=== PATIENT | female | born 1960 | race Caucasian/White ===

== ENCOUNTER 2018-02-13 10:53 | Emergency (ER) | payer BC, MEDICAID ==
[~2018-02-13] VITALS: Ht 160 cm; Wt 71.7 kg
[2018-02-13 10:55] VITALS: BP 161/82
--- NOTE | 2018-02-13 10:55 | NUR ---
TO BED # 11 AMBULATORY, REPORT GIVEN TO SIMA COLEMAN
--- NOTE | 2018-02-13 11:19 | NUR ---
PT C/O NUMBNESS AND TINGLING FO ARMS HAND AND LEGS X 3 WEEK. PT STATES IT ALL STARTED WHILE ON A TRIP TO [facility]. PT ALSO EXPERIENCING DIARRHEA. PT REPORTS GOING TO URGENT CARE LAST NIGHT AND BEING DIAGNOSED WITH A STOMACH INFECTION. PT CURRENTLY TAKING CIPRO AND FLAGYL. PT DENIES PAIN. REPORTS FEELING WEAK. NEURO CHECK WNL. PT WAS ABLE TO PROVIDE A URINE SAMPLE. PT DENIES ANY FEVER, CP, SOB AT THIS TIME; PATIENT STATES PAIN OF 0/10 AT THIS TIME; VSS; PATIENT POSITIONED FOR COMFORT; HOB ELEVATED; BEDRAILS UP X1; BED DOWN. ER MD MADE AWARE OF PT STATUS.
[2018-02-13] MEDS ORDERED: NACL 0.9% 1,000 ML IV ONE (11:46)
[2018-02-13] MEDS ORDERED: NACL 0.9% 1,000 ML IV SCH (11:46)
[2018-02-13 12:41] LABS: BASOPHILS # (AUTO) 0.1 K/uL (0.00-0.22); BASOPHILS % (AUTO) 0.8 % (0.0-2.0); EOSINOPHILS # (AUTO) 0.1 K/uL (0-0.4); EOSINOPHILS % (AUTO) 1.2 % (0.0-4.0); HEMATOCRIT 42.9 % (36-48); HEMOGLOBIN 14.3 g/dL (12.0-16.0); LYMPHOCYTES # (AUTO) 2.9 K/uL (2.5-16.5); LYMPHOCYTES % (AUTO) 31.9 % (20.5-51.1); MEAN CORPUSCULAR HEMOGLOBIN 30 pg (27-31); MEAN CORPUSCULAR HGB CONC 33 g/dL (33-37); MEAN CORPUSCULAR VOLUME 89.3 fL (80-94); MONOCYTES # (AUTO) 0.8 K/uL (0.8-1.0); MONOCYTES % (AUTO) 8.6 % (1.7-9.3); NEUTROPHILS # (AUTO) 5.1 K/uL (1.8-7.7); NEUTROPHILS % (AUTO) 57.5 % (42.2-75.2); PLATELET COUNT (AUTO) 285 K/uL (140-450); RED CELL DISTRIBUTION WIDTH 13.5 % (11.6-13.7)
[2018-02-13 12:45] LABS: APPEARANCE,URINE CLEAR (CLEAR)
[2018-02-13 12:46] LABS: BILIRUBIN,URINE NEGATIVE (NEGATIVE); BLOOD, URINE NEGATIVE (NEGATIVE); COLOR,URINE STRAW (YELLOW); LEUKOCYTE ESTERASE ,URINE 1+ (NEGATIVE); NITRITE, URINE NEGATIVE (NEGATIVE); PH,URINE 6.5 (5.0-9.0); UGLUCOSE NEGATIVE (NEGATIVE)
[2018-02-13 12:54] LABS: RBC,URINE NONE SEEN /HPF (0-5); WBC,URINE 6-15 (FEW) /HPF (0-5)
[2018-02-13 12:55] LABS: PROTHROMBIN TIME 9.7 secs (10.8-13.4)
[2018-02-13 12:58] LABS: ANION GAP 13.3 (8-16); POTASSIUM 4.3 mmol/L (3.5-5.1)
[2018-02-13 12:59] LABS: CREATININE 0.8 mg/dL (0.6-1.3)
[2018-02-13 13:05] LABS: ALBUMIN 3.9 g/dL (3.4-5.0); TOTAL BILIRUBIN 0.2 mg/dL (0.0-1.0)
--- NOTE | 2018-02-13 13:14 | NUR ---
PT TAKEN TO CT AT THIS TIME
--- NOTE | 2018-02-13 13:19 | NUR ---
patient returned from ct via gurney accompanied by cardiopulmonary technician. Returned to rm 11 without incident.
--- NOTE | 2018-02-13 15:52 | NUR ---
Patient discharged with v/s stable. Written and verbal after care instructions given and explained. Patient alert, oriented and verbalized understanding of instructions. Ambulatory with steady gait. All questions addressed prior to discharge. ID band removed. Patient advised to follow up with PMD. Rx of Antivert given. Patient educated on indication of medication including possible reaction and side effects. Opportunity to ask questions provided and answered.
[2018-02-13 15:53] VITALS: BP 139/77
== END 2018-02-13 15:52 | disposition home or self-care (01) ==
LOC: MED 10:53
DX: K58.2 Mixed irritable bowel syndrome (principal); N39.0 Urinary tract infection, site not specified; K76.0 Fatty (change of) liver, not elsewhere classified; K80.20 Calculus of gallbladder without cholecystitis without obstruction
CPT/HCPCS: 36415; 74177; 80053; 81001; 82150; 83690; 84484; 85025; 85610; 85730; 87086; 93005; 96360; 96361; 99284; J7030; Q9967

== ENCOUNTER 2018-02-18 21:38 | Emergency (ER) | payer MEDICAID ==
[~2018-02-18] VITALS: Ht 162.6 cm; Wt 71.7 kg
[2018-02-18 21:53] VITALS: BP 144/101
[2018-02-18] MEDS: MAGNESIUM CITRATE 300 ML BTL PO ONE (23:03)
[2018-02-18 23:28] VITALS: BP 142/91
== END 2018-02-18 23:28 | disposition home or self-care (01) ==
LOC: MED 21:38
DX: K59.00 Constipation, unspecified (principal)
CPT/HCPCS: 99283

== ENCOUNTER 2023-07-15 10:12 | Inpatient (IN) | payer OTHER ==
[~2023-07-15] VITALS: Ht 160 cm; Wt 65.2 kg
[2023-07-15 10:17] VITALS: BP_SYST 139; BP_SYST 141; BP_DIAS 81; BP_DIAS 83; PULSE 101; RESP 20; TEMP 97.8; O2SAT 99
[2023-07-15 12:23] LABS: BASOPHILS % (AUTO) 0.3 % (0.0-2.0); EOSINOPHILS # (AUTO) 0.2 K/uL (0-0.4); EOSINOPHILS % (AUTO) 1.8 % (0.0-4.0); HEMATOCRIT 38.2 % (36-48); LYMPHOCYTES # (AUTO) 3.1 K/uL (2.5-16.5); LYMPHOCYTES % (AUTO) 37.2 % (20.5-51.1); MEAN CORPUSCULAR HEMOGLOBIN 31 pg (27-31); MEAN CORPUSCULAR HGB CONC 34 g/dL (33-37); MEAN CORPUSCULAR VOLUME 90.4 fL (80-94); MONOCYTES # (AUTO) 0.6 K/uL (0.8-1.0); MONOCYTES % (AUTO) 7.5 % (1.7-9.3); NEUTROPHILS # (AUTO) 4.4 K/uL (1.8-7.7); NEUTROPHILS % (AUTO) 53.2 % (42.2-75.2); PLATELET COUNT (AUTO) 244 K/uL (140-450); RED BLOOD CELL COUNT(AUTO) 4.22 MIL/uL (4.20-5.40); RED CELL DISTRIBUTION WIDTH 13.3 % (11.6-13.7); WHITE BLOOD COUNT (AUTO) 8.3 K/uL (4.8-10.8)
[2023-07-15 12:40] LABS: ALBUMIN 3.8 g/dL (3.4-5.0); CREATININE 0.8 mg/dL (0.6-1.3); TOTAL BILIRUBIN 0.3 mg/dL (0.0-1.0); TOTAL PROTEIN, SERUM 7.2 g/dL (6.4-8.2)
[2023-07-15] MEDS ORDERED: HEPARIN PER PHARMACY MC PRN ×3 (13:40→21:15)
[2023-07-15] MEDS ORDERED: ASPIRIN 325 MG TAB ONE (15:14)
[2023-07-15] MEDS: ASPIRIN 325 MG TAB PO ONE (15:17)
[2023-07-15 16:11] LABS: INR 0.97 (0.8-1.2); PARTIAL THROMBOPLASTIN TIME 27.2 secs (22-35.6); PROTHROMBIN TIME 10.2 secs (10.8-13.4)
[2023-07-15] MEDS: hePARIN / DEXT 5% PREMIX 250 ML IV ONE (16:15)
[2023-07-15] MEDS ORDERED: hePARIN / DEXT 5% PREMIX 250 ML IV SCH (16:35)
[2023-07-15] MEDS ORDERED: MAG SULF 2000 MG/WATER PREMIX 50 ML IV PRN (17:00)
[2023-07-15] MEDS ORDERED: KCL 20 MEQ IN 100 mL PREMIX 200 ML IV PRN (17:00)
[2023-07-15] MEDS ORDERED: POTASSIUM CHLORIDE 10 MEQ TABER PO PRN (17:00)
[2023-07-15] MEDS ORDERED: ONDANSETRON 4 MG/2 ML VIAL IVP PRN (17:00)
[2023-07-15] MEDS ORDERED: LORazepam 1 MG TAB PO PRN (17:00)
[2023-07-15] MEDS ORDERED: ACETAMINOPHEN 325 MG TAB PO PRN (17:00)
[2023-07-15] MEDS ORDERED: HYDROcodone/APAP 5/325 MG 1 TAB TAB PO PRN (17:00)
[2023-07-15] MEDS ORDERED: ZOLPIDEM 5 MG TAB PO PRN (17:00)
[2023-07-15 21:30] VITALS: BP 132/76; PULSE 57; PULSE 60; RESP 18; TEMP 98.1; O2SAT 98
[2023-07-15] MEDS: hePARIN / DEXT 5% PREMIX 250 ML IV SCH (22:07)
[2023-07-16] VITALS (7 sets, daily range): BP systolic 110–139; BP diastolic 62–80; PULSE 52–93; RESP 18; TEMP 97–98.2; O2SAT 93–99
[2023-07-16] MEDS: ATORVASTATIN 20 MG TAB PO SCH (00:37)
[2023-07-16 08:19] LABS: BASOPHILS % (AUTO) 0.2 % (0.0-2.0); EOSINOPHILS # (AUTO) 0.2 K/uL (0-0.4); EOSINOPHILS % (AUTO) 2.4 % (0.0-4.0); HEMATOCRIT 40.1 % (36-48); HEMOGLOBIN 13.5 g/dL (12.0-16.0); LYMPHOCYTES # (AUTO) 3.4 K/uL (2.5-16.5); LYMPHOCYTES % (AUTO) 38.9 % (20.5-51.1); MEAN CORPUSCULAR HEMOGLOBIN 30 pg (27-31); MEAN CORPUSCULAR HGB CONC 34 g/dL (33-37); MEAN CORPUSCULAR VOLUME 90.5 fL (80-94); MONOCYTES # (AUTO) 0.7 K/uL (0.8-1.0); MONOCYTES % (AUTO) 7.9 % (1.7-9.3); NEUTROPHILS # (AUTO) 4.4 K/uL (1.8-7.7); NEUTROPHILS % (AUTO) 50.6 % (42.2-75.2); PLATELET COUNT (AUTO) 248 K/uL (140-450); RED BLOOD CELL COUNT(AUTO) 4.43 MIL/uL (4.20-5.40); RED CELL DISTRIBUTION WIDTH 13.6 % (11.6-13.7); WHITE BLOOD COUNT (AUTO) 8.8 K/uL (4.8-10.8)
[2023-07-16 08:34] LABS: CALCIUM 9.4 mg/dL (8.5-10.1); CARBON DIOXIDE 31.3 mmol/L (21-32); CREATININE 0.7 mg/dL (0.6-1.3); POTASSIUM 4.3 mmol/L (3.5-5.1)
[2023-07-16] MEDS: ASPIRIN 81 MG TAB.CHEW PO SCH (09:08)
[2023-07-17] VITALS (10 sets, daily range): BP systolic 107–122; BP diastolic 50–79; PULSE 7–77; RESP 18; TEMP 97.1–98.1; O2SAT 96–100
[2023-07-17 05:42] LABS: ANION GAP 14.7 (8-16); CALCIUM 9.4 mg/dL (8.5-10.1); CARBON DIOXIDE 25.3 mmol/L (21-32); CREATININE 0.8 mg/dL (0.6-1.3)
[2023-07-17 07:28] LABS: BASOPHILS % (AUTO) 0.3 % (0.0-2.0); EOSINOPHILS # (AUTO) 0.3 K/uL (0-0.4); EOSINOPHILS % (AUTO) 2.7 % (0.0-4.0); HEMATOCRIT 39.6 % (36-48); HEMOGLOBIN 13.2 g/dL (12.0-16.0); LYMPHOCYTES # (AUTO) 4.3 K/uL (2.5-16.5); LYMPHOCYTES % (AUTO) 44.7 % (20.5-51.1); MEAN CORPUSCULAR HEMOGLOBIN 30 pg (27-31); MEAN CORPUSCULAR HGB CONC 33 g/dL (33-37); MEAN CORPUSCULAR VOLUME 91.2 fL (80-94); MONOCYTES # (AUTO) 0.8 K/uL (0.8-1.0); MONOCYTES % (AUTO) 8.1 % (1.7-9.3); NEUTROPHILS # (AUTO) 4.2 K/uL (1.8-7.7); NEUTROPHILS % (AUTO) 44.2 % (42.2-75.2); PLATELET COUNT (AUTO) 252 K/uL (140-450); RED BLOOD CELL COUNT(AUTO) 4.34 MIL/uL (4.20-5.40); RED CELL DISTRIBUTION WIDTH 13.8 % (11.6-13.7); WHITE BLOOD COUNT (AUTO) 9.6 K/uL (4.8-10.8)
[2023-07-17] MEDS ORDERED: ASPI81CT95 PO (14:42)
[2023-07-17] MEDS ORDERED: ATOR20TA40 PO (14:42)
[2023-07-17] MEDS ORDERED: Heparin Per Pharmacy MC (14:42)
[2023-07-18] VITALS: BP 111/68; PULSE 58; RESP 16; TEMP 97.4; O2SAT 100
[2023-07-18 00:10] VITALS: PULSE 64
[2023-07-18 04:00] VITALS: BP 123/68; PULSE 82; RESP 17; TEMP 97.4; O2SAT 98
[2023-07-18 04:15] VITALS: PULSE 64
[2023-07-18 05:50] VITALS: BP 136/82; RESP 18; O2SAT 99
[2023-07-18] MEDS: MORPHINE SULFATE 4 MG/ML SYR IVP PRN (05:56)
== END 2023-07-18 07:50 | disposition short-term general hospital (02) | DRG 282 ==
LOC: MED 10:12 → MTU 17:02 → MMU 20:45
PROVIDERS: ADMIT Internal Medicine; ATTEND Internal Medicine
DX: I21.4 Non-ST elevation (NSTEMI) myocardial infarction (principal); Z20.822 Contact with and (suspected) exposure to COVID-19; F45.8 Other somatoform disorders; E78.5 Hyperlipidemia, unspecified; I25.119 Atherosclerotic heart disease of native coronary artery with unspecified angina pectoris
CPT/HCPCS: 36415; 71045; 80048; 80053; 83735; 83880; 84484; 85025; 85379; 85610; 85730; 87081; 93005; 96374; 99291; J1644; J2270

== ENCOUNTER 2023-08-21 09:54 | Emergency (ER) | payer OTHER ==
[~2023-08-21] VITALS: Ht 160 cm; Wt 62.1 kg
[~2023-08-21 09:54] MED LIST: ASPI81CT95 PO; ATOR20TA40 PO; Heparin Per Pharmacy MC
[2023-08-21 10:11] VITALS: BP 130/65; PULSE 65; RESP 20; TEMP 97.3; O2SAT 100
[2023-08-21] MEDS: MORPHINE SULFATE 2 MG/ML SYR IVP ONE (10:40)
[2023-08-21] MEDS: ONDANSETRON 4 MG/2 ML VIAL IVP ONE (10:41)
[2023-08-21 10:51] LABS: BASOPHILS % (AUTO) 0.2 % (0.0-2.0); EOSINOPHILS # (AUTO) 0.1 K/uL (0-0.4); EOSINOPHILS % (AUTO) 0.6 % (0.0-4.0); HEMATOCRIT 36.4 % (36-48); HEMOGLOBIN 12.2 g/dL (12.0-16.0); LYMPHOCYTES # (AUTO) 1.7 K/uL (2.5-16.5); LYMPHOCYTES % (AUTO) 13.2 % (20.5-51.1); MEAN CORPUSCULAR HEMOGLOBIN 30 pg (27-31); MEAN CORPUSCULAR HGB CONC 34 g/dL (33-37); MONOCYTES # (AUTO) 1.1 K/uL (0.8-1.0); MONOCYTES % (AUTO) 8.8 % (1.7-9.3); NEUTROPHILS # (AUTO) 9.8 K/uL (1.8-7.7); NEUTROPHILS % (AUTO) 77.2 % (42.2-75.2); PLATELET COUNT (AUTO) 240 K/uL (140-450); RED BLOOD CELL COUNT(AUTO) 4.09 MIL/uL (4.20-5.40); RED CELL DISTRIBUTION WIDTH 13.1 % (11.6-13.7); WHITE BLOOD COUNT (AUTO) 12.6 K/uL (4.8-10.8)
[2023-08-21 11:12] LABS: ANION GAP 11.9 (8-16); CALCIUM 9.3 mg/dL (8.5-10.1); CREATININE 0.7 mg/dL (0.6-1.3); POTASSIUM 3.9 mmol/L (3.5-5.1)
[2023-08-21 11:14] LABS: ALANINE AMINOTRANSFERASE 126 U/L (12-78); ALKALINE PHOSPHATASE 109 U/L (50-136); ASPARTATE AMINOTRANSFERASE 45 U/L (15-37); BILIRUBIN,DIRECT 0.1 mg/dL (0.0-0.3); TOTAL BILIRUBIN 0.6 mg/dL (0.0-1.0); TOTAL PROTEIN, SERUM 7.8 g/dL (6.4-8.2)
[2023-08-21] MEDS: KETOROLAC 30 MG/ML VIAL IVP ONE (12:30)
[2023-08-21] MEDS ORDERED: ONDA-188 PO (14:56)
[2023-08-21] MEDS ORDERED: ACET-8905 PO (14:56)
[2023-08-21 15:24] VITALS: BP 135/60; PULSE 52; RESP 11; TEMP 97.3; O2SAT 100
== END 2023-08-21 15:23 | disposition home or self-care (01) ==
LOC: MED 09:54
DX: K80.20 Calculus of gallbladder without cholecystitis without obstruction (principal); I10 Essential (primary) hypertension; Z95.811 Presence of heart assist device; Z87.891 Personal history of nicotine dependence; Z79.82 Long term (current) use of aspirin; Z79.899 Other long term (current) drug therapy
CPT/HCPCS: 36415; 71045; 76705; 80048; 80076; 83690; 83880; 84484; 85025; 93005; 96374; 96375; 99285; J1885; J2270; J2405; Q0092